=== PATIENT | female | born 1990 | race Caucasian/White ===

== ENCOUNTER 2017-05-04 05:53 | Inpatient (IN) ==
[2017-05-04] MEDS ORDERED: MEPERIDINE 50 MG/1 ML VIAL IV PRN (06:03)
[2017-05-04] MEDS ORDERED: ONDANSETRON 4 MG/2 ML VIAL IV PRN ×2 (06:03→18:34)
[2017-05-04] MEDS ORDERED: BUTORPHANOL 2 MG/ML VIAL IV PRN (06:03)
[2017-05-04] MEDS ORDERED: ACETAMINOPHEN 325 MG TABLET PO PRN ×2 (06:03→18:34)
[2017-05-04] MEDS: LACTATED RINGERS 1,000 ML IV SCH ×2 (06:18→18:12)
[2017-05-04] MEDS: OXYTOCIN/LR 20 UNIT/1,000 ML BAG IV SCH ×2 (06:23→18:12)
[2017-05-04 06:31] LABS: Basophils % 0.4 % (0.0-0.8); Eosinophils # 0.2 10*3/uL (0.0-0.87); Eosinophils % 1.9 % (0.00-10.9); Hematocrit 33.9 VOL% (35.7-47.0); Hemoglobin 12.1 GM/DL (12.0-16.0); Immature Granulocytes % 0.9 %; Lymphocytes # 1.7 10*3/uL (1.4-4.0); Lymphocytes % 15.1 % (21.3-54.2); Mean Corpuscular HGB Conc 35.7 GM/DL (32-36); Mean Corpuscular Hemoglobin 32 PG (27-34); Mean Corpuscular Volume 90.9 FL (87-102); Mean Platelet Volume 10.6 FL (9.6-12.0); Monocytes # 0.7 10*3/uL (0.11-0.8); Monocytes % 6.3 % (1.7-12.7); Neutrophils # 8.4 10*3/uL (1.4-7.4); Neutrophils % 75.4 % (38.7-73.9); Platelet Count 181 T/CUMM (130-400); Red Blood Count 3.73 MC/CUMM (3.8-5.5); White Blood Count 11.2 T/CUMM (4-12)
--- NOTE | 2017-05-04 06:52 | History and Physical Update ---
History and Physical Update - History and Physical H&P was reviewed, the patient examined and there: are no changes in the patients condition since last H&P was completed. - Dictation Physical: refer to scanned H&P - Physical Exam Mental Status: alert and oriented Heart: regular rate and rhythm Lung: clear to auscultation Abdomen: within normal limits Vitals: within normal limits History and Physical Changes: 39wks for induction
[2017-05-04 07:00] LABS: Alanine Aminotransferase 16 U/L (13-56); Albumin 2.8 G/DL (3.4-5.0); Alkaline Phosphatase 194 U/L (45-117); Aspartate Amino Transferase 16 U/L (0-37); Bilirubin,Total < 0.39 MG/DL (0.2-1.0); Blood Urea Nitrogen 7 MG/DL (7-18); Calcium 9.6 MG/DL (8.5-10.1); Glucose 113 MG/DL (74-106); Osmolality,Calculated 277.4 MOS/KG (273-304); Potassium 3.4 MMOL/L (3.5-5.1); Sodium 140 MMOL/L (136-145); Total Protein 6.2 G/DL (6.4-8.3)
[2017-05-04] MEDS ORDERED: PROMETHAZINE 25 MG/1 ML VIAL IM ONE (11:33)
[2017-05-04] MEDS ORDERED: FAMOTIDINE 20 MG/2 ML VIAL IV ONE (11:33)
[2017-05-04] MEDS ORDERED: LACTATED RINGERS 1,000 ML IV ONE (11:33)
[2017-05-04] MEDS ORDERED: diphenhydrAMINE 50 MG/1 ML VIAL IV PRN ×2 (11:33)
[2017-05-04] MEDS ORDERED: CITRIC ACID/SODIUM CITRATE 30 ML UDCUP PO ONE (11:33)
[2017-05-04] MEDS ORDERED: ePHEDrine 50 MG/ML AMP IV PRN (11:33)
[2017-05-04] MEDS ORDERED: hydrOXYzine HCL 25 MG/1 ML VIAL IM PRN (11:33)
[2017-05-04] MEDS ORDERED: fentaNYL 2 MCG/ROPIV 0.2% EPID 150 ML EPIDURAL SCH (11:33)
[2017-05-04] MEDS ORDERED: LACTATED RINGERS 1,000 ML IV SCH (12:00)
[2017-05-04 14:16] LABS: Apearance,Urine Slightly Hazy (Clear); Bacteria,Urine Occasional /HPF (Few); Bilirubin,Urine Negative (Negative); Blood, Urine Negative (Negative); Glucose,Urine (UA) Negative (Negative); Ketones,Urine 20 mg/dL (Negative); Mucus,Urine Occasional /LPF (Occasional); Nitrite,Urine Negative (Negative); Protein,Urine Negative; RBC,Urine 3 /HPF (0-4); Squamous Epithelial Cell,Urine Occasional /HPF (0-10); Urine Color Yellow (Yellow); Urine Specific Gravity 1.012 (1.001-1.035); Urine Urobilinogen < 2.0 EU/DL (0.2-1.0); WBC,Urine 4 /HPF (0-6)
[2017-05-04] MEDS ORDERED: miSOPROStol 200 MCG TABLET ONE (15:11)
[2017-05-04] MEDS ORDERED: METHYLERGONOVINE 0.2 MG/1 ML AMP ONE (15:12)
[2017-05-04] MEDS ORDERED: LANOLIN 50% CREAM 0.3 OZ TUBE TOP PRN (18:34)
[2017-05-04] MEDS ORDERED: BENZOCAINE 20%/MENTHOL 0.5% SPRAY 56 GM CAN TOP PRN (18:34)
[2017-05-04] MEDS ORDERED: oxyCODONE/ACETAMINOPHEN 5-325 MG TABLET PO PRN ×2 (18:34)
[2017-05-04] MEDS ORDERED: BISACODYL 10 MG SUPP RECTAL PRN (18:34)
[2017-05-04] MEDS ORDERED: MEASLES/MUMPS/RUBELLA VACCINE 0.5 ML VIAL SUBCUT ONE (18:34)
[2017-05-04] MEDS ORDERED: RHO(D) IMMUNE GLOBULIN 300 MCG SYRINGE IM ONE (18:34)
[2017-05-04] MEDS ORDERED: DIPH/TET/ACEL PERT BOOSTER VACCINE 0.5 ML VIAL IM ONE (18:34)
[2017-05-04] MEDS ORDERED: HYDROCORTISONE 2.5% RECTAL CREAM 30 GM TUBE TOP PRN (18:34)
[2017-05-04] MEDS ORDERED: OXYTOCIN/LR 20 UNIT/1,000 ML BAG IV ONE (18:34)
[2017-05-04] MEDS ORDERED: WITCH HAZEL PADS 100/JAR TOP PRN (18:34)
[2017-05-04] MEDS: DOCUSATE SODIUM 100 MG CAPSULE PO SCH (22:15)
[2017-05-04] MEDS: IBUPROFEN 800 MG TABLET PO PRN (22:15)
[2017-05-05 02:38] LABS: Basophils # 0.1 10*3/uL (0.0-0.2); Basophils % 0.4 % (0.0-0.8); Eosinophils # 0.1 10*3/uL (0.0-0.87); Eosinophils % 0.5 % (0.00-10.9); Hematocrit 29.3 VOL% (35.7-47.0); Hemoglobin 10.3 GM/DL (12.0-16.0); Immature Granulocytes % 1.3 %; Immature Granulocytes Absolute 0.19 #; Mean Corpuscular HGB Conc 35.2 GM/DL (32-36); Mean Corpuscular Hemoglobin 32 PG (27-34); Mean Corpuscular Volume 91.6 FL (87-102); Monocytes # 1.3 10*3/uL (0.11-0.8); Monocytes % 8.8 % (1.7-12.7); Neutrophils # 11.5 10*3/uL (1.4-7.4); Platelet Count 193 T/CUMM (130-400); White Blood Count 15.1 T/CUMM (4-12)
[2017-05-05] MEDS: IBUPROFEN 800 MG TABLET PO PRN ×2 (03:25→15:38)
[2017-05-05] MEDS: DOCUSATE SODIUM 100 MG CAPSULE PO SCH ×2 (08:41→20:59)
--- NOTE | 2017-05-05 15:18 | Anesthesia Post-Op ---
Anesthesia Post OP - Post Ansesthetic Evaluation Patient seen in post op: Yes Resp: within normal limits CV: within normal limits Mental: within normal limits Temp: within normal limits [id number]: within normal limits Nausea and Vomiting: within normal limits Pain: within normal limits
[2017-05-05] MEDS ORDERED: RHO(D) IMMUNE GLOBULIN 300 MCG SYRINGE IM ONE (19:15)
[2017-05-06] MEDS: DOCUSATE SODIUM 100 MG CAPSULE PO SCH (09:55)
[2017-05-06 10:08] VITALS: BP 129/79
--- NOTE | 2017-05-06 11:21 | Pathology Report from [facility] ---
[facility] [place] ACCESSION # : [id number] PATIENT NAME : Tarhsa Crum ORDERING DR : TONA PEARSON CLINICAL HX: IUP 39.3 wks gestation POST-OP DX: Same SPECIMEN INFO: Placenta GROSS DESCRIPTION: Received fresh labeled TARSHA CRUM is a 527 gm placenta measuring 18.5 x 17.5 x 2.8 cm. The membranes are pink yan and translucent. The umbilical cord measures 53.0 cm, contain three vessels and is eccentrically inserted. The surface is blue rico and intact. The maternal surface is hemorrhagic and intact with scattered calcifications seen. Sectioning reveals no gross abnormalities. Sections submitted A- membranes and cord, B- and maternal surfaces. DIAGNOSIS FOR TARSHA CRUM: PLACENTA: Trivascular umbilical cord. Unremarkable membranes. Third trimester placenta with dystrophic calcification and intervillous fibrin deposition. COLLECTED DATE: 05/05/2017 [facility] REPORT DATE: 05/06/2017 ELECTRONICALLY SIGNED BY: Kris Ervin III, M.D. 05/06/2017 - 9:48:06 ESTER
--- NOTE | 2017-07-13 07:05 | Operative Note ---
DATE: 05/04/2017 PREOPERATIVE DIAGNOSIS: 39 WEEKS GESTATION, ADMITTED FOR INDUCTION. POSTOPERATIVE DIAGNOSIS: 39 WEEKS GESTATION, ADMITTED FOR INDUCTION. PROCEDURE: KIWI VACUUM-ASSISTED DELIVERY OF A VIABLE MALE . SHE ALSO HAD A SECOND-DEGREE PERINEAL LACERATION WITH REPAIR. DESCRIPTION OF PROCEDURE: The patient progressed to complete and pushing with labor epidural and Pitocin augmentation and due to ineffective pushing with the epidural, a Kiwi vacuum was used to assist delivery. Benefits, risks and complications of vacuum delivery were discussed with the patient and she voiced understanding and wished to proceed. The Kiwi was applied to the vertex and +3 station with one uterine contraction with minimal traction leading to the easy delivery of the head without difficulty. The baby was then delivered without difficulty. The baby was bulb suctioned. Cord was doubly clamped and cut and the handed to personnel in attendance. Cord blood was collected. The placenta was delivered intact. The second-degree perineal lacerations were repaired with 2-0 and 3-0 chromic suture with good approximation and hemostasis. The fundus was noted to be firm. The patient tolerated the procedure well. Estimated blood loss was 500 cc. The patient was stable and the was stable at the completion of the delivery. [facility]
== END 2017-05-06 11:50 | disposition home or self-care (01) | DRG 775 ==
LOC: N.LDOUT 05:53 → N.LD 05:56 → N.OB 20:58
PROVIDERS: ADMIT Obstetrics & Gynecology; ATTEND Obstetrics & Gynecology

== ENCOUNTER 2022-01-07 16:15 | Inpatient (IN) ==
[2022-01-07] MEDS: LACTATED RINGERS 1,000 ML IV SCH ×3 (16:30→19:00)
[2022-01-07] MEDS ORDERED: ONDANSETRON 4 MG/2 ML VIAL IV PRN ×2 (16:40→22:20)
[2022-01-07] MEDS ORDERED: hydrOXYzine HCL 25 MG/1 ML VIAL IM PRN (16:52)
[2022-01-07] MEDS ORDERED: NALOXONE 0.4 MG/ML VIAL IV PRN (16:52)
[2022-01-07] MEDS ORDERED: diphenhydrAMINE 50 MG/1 ML VIAL IV PRN (16:52)
[2022-01-07] MEDS ORDERED: ePHEDrine 50 MG/ML VIAL IV PRN (16:52)
[2022-01-07] MEDS ORDERED: FAMOTIDINE 20 MG/2 ML VIAL IV ONE (16:52)
[2022-01-07] MEDS ORDERED: PROMETHAZINE 25 MG/1 ML VIAL IM PRN (16:52)
[2022-01-07] MEDS ORDERED: CITRIC ACID/SODIUM CITRATE 30 ML UDCUP PO ONE (16:52)
[2022-01-07] MEDS ORDERED: fentaNYL 2 MCG/ROPIV 0.2% EPID 100 ML EPIDURAL SCH (17:00)
[2022-01-07] MEDS ORDERED: OXYTOCIN/LR 20 UNIT/1,000 ML BAG IV SCH (17:00)
[2022-01-07 17:09] LABS: Basophils % 0.3 % (0.0-0.8); Eosinophils # 0.2 10*3/uL (0.0-0.87); Eosinophils % 1.7 % (0.00-10.9); Hematocrit 34.3 VOL% (35.7-47.0); Hemoglobin 11.7 GM/DL (12.0-16.0); Immature Granulocytes % 0.6 %; Immature Granulocytes Absolute 0.06 #; Lymphocytes % 18.4 % (21.3-54.2); Mean Corpuscular HGB Conc 34.1 GM/DL (32-36); Mean Corpuscular Volume 91.5 FL (87-102); Mean Platelet Volume 11.3 FL (9.6-12.0); Monocytes % 6.9 % (1.7-12.7); Neutrophils % 72.1 % (38.7-73.9); Platelet Count 218 T/CUMM (130-400); Red Blood Count 3.75 MC/CUMM (3.8-5.5); Red Cell Distribution Width 12.5 % (9.3-17.3); White Blood Count 10.6 T/CUMM (4-12)
[2022-01-07 17:32] LABS: Alanine Aminotransferase 23 U/L (13-56); Albumin 2.8 G/DL (3.4-5.0); Alkaline Phosphatase 197 U/L (45-117); Aspartate Amino Transferase 35 U/L (0-37); Bilirubin,Total < 0.39 MG/DL (0.20-1.00); Blood Urea Nitrogen 10 MG/DL (7-18); Calcium 9.5 MG/DL (8.5-10.1); Carbon Dioxide 22 MMOL/L (21-32); Estimated Glom Filtration Rate 150 ML/MIN; Glucose 84 MG/DL (74-106); Potassium 3.8 MMOL/L (3.5-5.1); Sodium 136 MMOL/L (136-145); Total Protein 7.1 G/DL (6.4-8.2)
[2022-01-07 18:44] LABS: Bilirubin,Urine Negative (Negative); Blood, Urine Negative (Negative); Glucose,Urine (UA) Negative (Negative); Ketones,Urine 5 mg/dL (Negative); Mucus,Urine Occasional /LPF (Occasional); Nitrite,Urine Negative (Negative); Protein,Urine Negative; Urine Appearance CLEAR (Clear); Urine Color Straw (Yellow); Urine Specific Gravity 1.006 (1.001-1.035); Urine Urobilinogen < 2.0 EU/DL (<2.0)
[2022-01-07] MEDS ORDERED: TRANEXAMIC ACID 1,000 MG/10 ML VIAL ONE (21:29)
[2022-01-07] MEDS ORDERED: SODIUM CHLORIDE 0.9% 0 ML IV ONE (21:29)
[2022-01-07] MEDS ORDERED: miSOPROStoL 200 MCG TABLET ONE (21:29)
[2022-01-07] MEDS ORDERED: METHYLERGONOVINE 0.2 MG/1 ML AMP ONE (21:30)
[2022-01-07] MEDS ORDERED: CARBOPROST TROMETHAMINE 250 MCG/ML AMP IM ONE (21:30)
[2022-01-07] MEDS ORDERED: ACETAMINOPHEN 325 MG TABLET PO PRN (22:20)
[2022-01-07] MEDS ORDERED: BISACODYL 10 MG SUPP RECTAL PRN (22:20)
[2022-01-07] MEDS ORDERED: BENZOCAINE 20%/MENTHOL 0.5% SPRAY 56 GM CAN TOP PRN (22:20)
[2022-01-07] MEDS ORDERED: OXYTOCIN/LR 20 UNIT/1,000 ML BAG IV ONE (22:20)
[2022-01-07] MEDS ORDERED: oxyCODONE/ACETAMINOPHEN 5-325 MG TABLET PO PRN ×2 (22:20)
[2022-01-07] MEDS ORDERED: MEASLES/MUMPS/RUBELLA VACCINE 0.5 ML VIAL SUBCUT ONE (22:20)
[2022-01-07] MEDS ORDERED: HYDROCORTISONE 2.5% RECTAL CREAM 30 GM TUBE TOP PRN (22:20)
[2022-01-07] MEDS ORDERED: LANOLIN 50% CREAM 0.3 OZ TUBE TOP PRN (22:20)
[2022-01-07] MEDS ORDERED: RHO(D) IMMUNE GLOBULIN 300 MCG SYRINGE IM ONE (22:20)
[2022-01-07] MEDS ORDERED: DIPH/TET/ACEL PERT BOOSTER VACCINE 0.5 ML VIAL IM ONE (22:20)
[2022-01-07] MEDS ORDERED: WITCH HAZEL PADS 100/JAR TOP PRN (22:20)
[2022-01-07 22:29] LABS: Cord Arterial Blood HCO3 19.3 MMOL/L
[2022-01-07 22:31] LABS: Cord Venous Blood HCO3 22.9 MMOL/L; Cord Venous Blood PCO2 43.6 MMHG; Cord Venous Blood PO2 30.5
[2022-01-08] MEDS: IBUPROFEN 800 MG TABLET PO PRN ×2 (01:16→21:08)
[2022-01-08 05:00] LABS: Basophils # 0.1 10*3/uL (0.0-0.2); Basophils % 0.5 % (0.0-0.8); Eosinophils # 0.2 10*3/uL (0.0-0.87); Eosinophils % 1.2 % (0.00-10.9); Hematocrit 31.1 VOL% (35.7-47.0); Hemoglobin 10.3 GM/DL (12.0-16.0); Immature Granulocytes % 0.7 %; Immature Granulocytes Absolute 0.09 #; Mean Corpuscular HGB Conc 33.1 GM/DL (32-36); Mean Corpuscular Volume 93.4 FL (87-102); Neutrophils % 73.6 % (38.7-73.9); Platelet Count 190 T/CUMM (130-400); Red Blood Count 3.33 MC/CUMM (3.8-5.5); Red Cell Distribution Width 12.6 % (9.3-17.3); White Blood Count 13.2 T/CUMM (4-12)
[2022-01-08] MEDS: DOCUSATE SODIUM 100 MG CAPSULE PO SCH ×2 (09:07→21:08)
[2022-01-08] MEDS ORDERED: RHO(D) IMMUNE GLOBULIN 300 MCG SYRINGE IM ONE (16:24)
[2022-01-09] MEDS: DOCUSATE SODIUM 100 MG CAPSULE PO SCH (09:36)
[2022-01-09 09:49] VITALS: BP 114/65
== END 2022-01-09 11:35 | disposition home or self-care (01) | DRG 807 ==
LOC: N.LDOUT 16:15 → N.LD 16:18 → N.OB 01-08 01:00
PROVIDERS: ADMIT Obstetrics & Gynecology; ATTEND Obstetrics & Gynecology